=== PATIENT | male | born 1980 | race Caucasian/White ===

== ENCOUNTER 2017-07-16 21:36 | Emergency (ER) | payer BC ==
--- NOTE | 2017-07-16 21:52 | ERNOTE ---
Neuro HPI ER Record Presenting Symptoms: other - seizure Time Seen by Provider: 07/16/17 21:37 Source: patient Exam Limitations: no limitations Allergies/Adverse Reactions: Allergies Allergy/AdvReac Type Severity Reaction Status Date / Time No Known Allergies Allergy Unverified 07/16/17 21:49 Home Medications: HOME MEDICATIONS OXcarbazepine [Trileptal] 1,200 mg PO DAILY 07/16/17 [Last Taken Unknown] OXcarbazepine [Trileptal] 900 mg PO HS 07/16/17 [Last Taken Unknown] lamoTRIgine [Lamictal] 200 mg PO BID 07/16/17 [Last Taken Unknown] - History of Present Illness Narrative: Pt states he was over at a friends house and had a seizure. He remembers having dinner and then he remembers being in the ambulance. He is alert and oriented upon arrival Severity: moderate - Character of Deficits Baseline Cognition: Present: alert, oriented x 4 Baseline Gait: Present: walks w/o assistance Prior Treament: Reports: similar symptoms before - has not had a seizure in 2 years. Review of Systems - Review of Systems Constitutional: Absent: recent illness EYE: Absent: vision changes ENT: Absent: nose congestion, sore throat Respiratory: Absent: shortness of breath Cardiology: Absent: chest pain Gastrointestinal/Abdominal: Absent: nausea, vomiting, constipation Genitourinary: Absent: frequency, dysuria Musculoskeletal: Present: joint pain - minor discomfort of his left wrist. Absent: back pain, muscle pain, neck pain Skin: Absent: rash, lesions Neurological: Present: See HPI, seizure. Absent: headache, dizziness/light- headedness Endocrine: Absent: excessive sweating Hematologic/Lymphatic: Present: no symptoms reported Psych: Present: no symptoms reported - Patient's Past Medical History Patient History - Medical: Seizures Patient History - Cardiac/Respiratory: No pertinent hx Physical Exam - Physical Exam General Appearance: Present: wd/wn, alert, no apparent distress Head Exam: Present: other - small abrasion right zoroastrian. Absent: no tenderness w palpation, contusions, ecchymosis, lacerations Eye Exam: Normal inspection: bilateral, PERRL: bilateral Ears, Nose, Throat: Present: normal except - - minor abrasions on nose, no bony tenderness. Neck: Present: normal inspection, nontender, supple Respiratory: Present: no respiratory distress, normal breath sounds, no accessory muscle use, lungs clear Cardiovascular/Chest: Present: regular rate, rhythm, no murmur, normal peripheral pulses Gastrointestinal/Abdominal: Present: normal bowel sounds, soft Back Exam: Present: normal inspection, normal range of motion Extremity Exam: Present: pedal edema - bilateral. 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 Results and Orders: Laboratory Tests 07/16/17 07/16/17 22:10 22:10 WBC 8.0 Hgb 16.0 Hct 47.0 Plt Count 208 Sodium 138 Potassium 3.7 Chloride 100 Carbon Dioxide 24.5 BUN 19 Creatinine 1.26 Random Glucose 166 H Calcium 8.0 Total Bilirubin 0.3 AST 54 H ALT 41 Alkaline Phosphatase 81 Total Protein 7.4 Albumin 3.6 - Vital Signs Patient's Vital Signs:: I have reviewed the patient's vital signs. Departure Clinical Impression: Seizure - Departure Disposition: Home self-care Condition: Good Instructions: Seizure, Adult, [id number] Additional Instructions: Continue to take your medication as prescribed. Follow up with your regular doctor as necessary
[2017-07-16 22:15] LABS: Mean Corpuscular Hemoglobin 29.6 pg (27-31); Mean Platelet Volume 9.8 fl (6.0-9.5); Neutrophil # 5.4 K/mm3 (1.3-6.0); Neutrophil % 67.4 % (42-75.0); Platelet Count 208 K/mm3 (150-450); Red Cell Distribution Width 12.5 % (11.5-14.0)
[2017-07-16 22:30] LABS: Albumin * 3.6 gm/dl (3.4-5.0); Anion Gap 17.2 mmol/L (6.8-13.8); BUN/Creatinine Ratio 15.1 (9.0-21.6); Bilirubin, Total 0.3 mg/dL (0.0-1.1); Carbon Dioxide 24.5 mmol/L (24-32.6); Potassium 3.7 mmol/L (3.4-4.6); Total Protein 7.4 gm/dL (6.2-8.2)
[2017-07-17 00:02] VITALS: BP 103/68
== END 2017-07-16 23:30 | disposition home or self-care (01) ==
LOC: ER 21:36
DX: R56.9 Unspecified convulsions (principal)